=== PATIENT | male | born 1955 | race Caucasian/White ===

== ENCOUNTER → 2019-06-26 | Outpatient (CLI) | payer MEDICARE ==
--- NOTE | 2019-06-26 17:01 | CT ---
EXAMINATION TYPE: CT lumbar spine wo con DATE OF EXAM: 06/26/2019 COMPARISON: None HISTORY: low back pain CT DLP: 782.6 mGycm Automated exposure control for dose reduction was used. An unenhanced CT of the lumbar spine was performed. Bone and soft tissue window settings are submitt ed as well as coronal and sagittal reconstructions. FINDINGS: There is multilevel spondylosis. Lumbar vertebral bodies show preserved height, alignment, and bone m ineralization. There is a spinal curvature. Laminectomy change is present posterior elements of L4 an d L5 on the left. L1-L2: Minimal posterior broad-based disc bulge noted causing anterior mass effect on the thecal sac. No significant spinal stenosis. Circumferential extension of disc bulge encroaches somewhat on the f oramina. L2-L3: There is a posterior broad-based disc bulge causing mild anterior mass effect on the thecal sa c. No significant foraminal encroachment or spinal stenosis. L3-L4: Posterior broad-based disc bulge causes anterior mass effect on the thecal sac. Facet arthropa thy with hypertrophic change of the ligamentum flavum, facet arthropathy causes mass effect on the th ecal sac, there is mild to moderate central canal stenosis suspected on axial image #62. Lateral exte nsion endplate disc complex encroaches on the foramina. L4-L5: Posterior broad-based disc bulge causes anterior mass effect on the thecal sac. There is calci fication along the disc. No significant spinal stenosis. Circumferential extension endplate disc comp ofe encroaches somewhat on the neural foramina right greater than left. L5-S1: There is a posterior disc bulge, posterior extension of endplate disc complex causing anterior mass effect on the thecal sac, there may be contact of the proximal S1 nerve root on the left. No si gnificant spinal stenosis. Circumferential extension endplate disc complex results in foraminal encro achment. Multilevel foraminal encroachment, spinal stenosis, facet arthropathy. Spinal stenosis. IMPRESSION: No paraspinal masses are identified. Degenerative disc disease, Lumbar segments are intact.
== END | disposition home or self-care (01) ==
LOC: RADCTMAIN 15:22
PROVIDERS: ATTEND Neurological Surgery
DX: M51.36 Other intervertebral disc degeneration, lumbar region (principal); I73.9 Peripheral vascular disease, unspecified; Z98.1 Arthrodesis status
CPT/HCPCS: 72131